=== PATIENT | male | born 1950 | race Caucasian/White ===

== ENCOUNTER 2018-07-18 10:53 | Emergency (ER) | payer OTHER ==
[2018-07-18] MEDS ORDERED: NA CHLORIDE 0.9% 500 ML ONE (12:43)
[2018-07-18] MEDS ORDERED: LIDOCAINE 1% MPF 5 ML VIAL ONE (12:43)
[2018-07-18] MEDS ORDERED: BUPIVACAINE 0.5% PF 10 ML VIAL ONE (12:43)
[2018-07-18] MEDS ORDERED: CEFAZOLIN/SWI 1gm 1 GM/10 ML SYR ONE (12:44)
[2018-07-18] MEDS ORDERED: TETANUS & DIPHTHERIA TOX,ADULT 0.5 ML VIAL ONE (12:44)
--- NOTE | 2018-07-18 14:00 | RAD REPORT ---
EXAM DESCRIPTION: RAD -Hand Left 3 View - 07/18/2018 1:22 pm CLINICAL HISTORY: Left hand pain status post injury FINDINGS: No fracture or dislocation is seen.
--- NOTE | 2018-07-18 14:56 | EDPHYS ---
Physician Documentation [facility] Name: Fareed Kennedy Age: 67 yrs Sex: Male : 1950 Arrival Date: 07/18/2018 Time: 10:59 Bed Treatment Private MD: Jason Mckeon V ED Physician Andrew Paiz HPI: 07/18 12:14 This 67 yrs old Male presents to ER via Ambulatory with complaints of thumb vero laceration. 12:14 The patient or guardian reports decreased range of motion, a laceration, irregular, vero complex, pain. The complaints affect the IP of left thumb. Context: The problem was sustained at home. Onset: The symptoms/episode began/occurred just prior to arrival. Modifying factors: The symptoms are alleviated by. Associated signs and symptoms: The patient has no apparent associated signs or symptoms. Severity of symptoms: At their worst the symptoms were mild, moderate, in the emergency department the symptoms are unchanged. The patient has not experienced similar symptoms in the past. Historical: - Home Meds: 11:14 None [Active]; tw2 - PMHx: 11:14 None; tw2 - PSHx: 11:14 None; tw2 - Immunization history:: Last tetanus immunization: up to date. - Social history:: Smoking status: Patient/guardian denies using tobacco, Patient uses alcohol, occasionally. - Ebola Screening: : Patient denies travel to an Ebola-affected area in the 21 days before illness onset. - Family history:: not pertinent. ROS: 12:14 Constitutional: Negative for fever, chills, and weight loss, Eyes: Negative for injury, vero pain, redness, and discharge, ENT: Negative for injury, pain, and discharge, Neck: Negative for injury, pain, and swelling, Cardiovascular: Negative for chest pain, palpitations, and edema, Respiratory: Negative for shortness of breath, cough, wheezing, and pleuritic chest pain, Abdomen/GI: Negative for abdominal pain, nausea, vomiting, diarrhea, and constipation, Back: Negative for injury and pain, : Negative for injury, bleeding, discharge, and swelling, Skin: Negative for injury, rash, and discoloration, Neuro: Negative for headache, weakness, numbness, tingling, and seizure, Psych: Negative for depression, anxiety, suicide ideation, homicidal ideation, and hallucinations, Allergy/Immunology: Negative for hives, rash, and allergies, Endocrine: Negative for neck swelling, polydipsia, polyuria, polyphagia, and marked weight changes, Hematologic/Lymphatic: Negative for swollen nodes, abnormal bleeding, and unusual bruising. 12:14 MS/extremity: Positive for laceration, pain, swelling, of the dorsal aspect of distal phalanx of left thumb and palmar aspect of distal phalanx of left thumb. Exam: 12:14 Constitutional: This is a well developed, well nourished patient who is awake, alert, vero and in no acute distress. Head/Face: Normocephalic, atraumatic. Eyes: Pupils equal round and reactive to light, extra-ocular motions intact. Lids and lashes normal. Conjunctiva and sclera are non-icteric and not injected. Cornea within normal limits. Periorbital areas with no swelling, redness, or edema. ENT: Nares patent. No nasal discharge, no septal abnormalities noted. Tympanic membranes are normal and external auditory canals are clear. Oropharynx with no redness, swelling, or masses, exudates, or evidence of obstruction, uvula midline. Mucous membranes moist. Neck: Trachea midline, no thyromegaly or masses palpated, and no cervical lymphadenopathy. Supple, full range of motion without nuchal rigidity, or vertebral point tenderness. No Meningismus. Chest/axilla: Normal chest wall appearance and motion. Nontender with no deformity. No lesions are appreciated. Cardiovascular: Regular rate and rhythm with a normal S1 and S2. No gallops, murmurs, or rubs. Normal PMI, no JVD. No pulse deficits. Respiratory: Lungs have equal breath sounds bilaterally, clear to auscultation and percussion. No rales, rhonchi or wheezes noted. No increased work of breathing, no retractions or nasal flaring. Abdomen/GI: Soft, non-tender, with normal bowel sounds. No distension or tympany. No guarding or rebound. No evidence of tenderness throughout. Back: No spinal tenderness. No costovertebral tenderness. Full range of motion. Male : Normal genitalia with no discharge or lesions. Skin: Warm, dry with normal turgor. Normal color with no rashes, no lesions, and no evidence of cellulitis. Neuro: Awake and alert, GCS 15, oriented to person, place, time, and situation. Cranial nerves II-XII grossly intact. Motor strength 5/5 in all extremities. Sensory grossly intact. Cerebellar exam normal. Normal gait. Psych: Awake, alert, with orientation to person, place and time. Behavior, mood, and affect are within normal limits. 12:14 Musculoskeletal/extremity: Extremities: laceration, ROM: no acute changes, Circulation is intact in all extremities. Compartment Syndrome exam of affected extremity: is normal. DVT Exam: negative Homans' sign noted on exam, no appreciated bluish discoloration, no erythema, no increased warmth, pain, swelling, tenderness. Vital Signs: 11:13 BP 179 / 98; Pulse 63; Resp 17; Temp 98(TE); Pulse Ox 100% on R/A; Weight 83.91 kg; tw2 Height 5 ft. 10 in. (177.80 cm); Pain 4/10; 11:13 Body Mass Index 26.54 (83.91 kg, 177.80 cm) tw2 Laceration: 12:50 Wound Repair of 2.5cm ( 1.0in ) subcutaneous laceration to dorsal aspect of distal vero phalanx of left thumb. Irregularly shaped.. Skin/tissue flap noted.. Distal neuro/vascular/tendon intact. Anesthesia: Digital block administered with 5 mls of 1% lidocaine, Digital block administered with 5 mls of 0.5% marcaine. Wound prep: Moderate cleansing with betadine by wi, Copious irrigation. Skin closed with 4 4-0 Prolene using interrupted sutures and sterile technique. Dressed with non-adherent dressing. Patient tolerated well. MDM: 11:45 Patient medically screened. [facility] 12:19 Data reviewed: vital signs, nurses notes, lab test result(s), radiologic studies, plain vero films. 07/18 12:13 Order name: Hand Left 3 View XRAY [facility] 07/18 12:13 Order name: Prolene, Sutures; Complete Time: 13:04 [facility] 07/18 12:13 Order name: Dressing - Wound; Complete Time: 15:11 [facility] 07/18 12:13 Order name: Gloves, Sterile; Complete Time: 13:04 [facility] 07/18 12:13 Order name: Setup Suture Tray; Complete Time: 13:04 [facility] Administered Medications: 13:00 Drug: NS 0.9% 500 ml Route: IV; Rate: bolus; Site: right antecubital; iw 13:00 Drug: Ancef 1 grams Route: IVPB; Site: right antecubital; iw 14:30 Drug: Bupivacaine (0.5 %) 5 ml Volume: 10 ml; Route: Infiltration; iw 15:00 Drug: KeFLEX 500 mg Route: PO; iw 15:11 Not Given ([facility] ): Tetanus-Diphtheria Toxoid Adult 0.5 iw ml IM once 15:11 Drug: Lidocaine (1 %) 5 ml Volume: 5 ml; Route: Infiltration; iw Disposition: 07/18/18 14:55 Discharged to Home. Impression: Laceration without foreign body of left hand - thumb. - Condition is Stable. - Discharge Instructions: Laceration Care, Adult, Laceration Care, Adult, [id number]. - Prescriptions for Keflex 500 mg Oral Capsule - take 1 capsule by ORAL route every 6 hours for 10 days; 28 capsule. Tylenol- Codeine #3 300-30 mg Oral Tablet - take 2 tablets by ORAL route every 6 hours As needed; 24 tablet. - Medication Reconciliation Form, Thank You Letter, Antibiotic Education, Prescription Opioid Use, Work release form form. - Follow up: Jason Mckeon; When: 5 - 6 days; Reason: Recheck today's complaints, Continuance of care, Re-evaluation by your physician. Follow up: Alejandro Christopher; When: 2 - 3 days; Reason: Recheck today's complaints, Re-evaluation by your physician. - Problem is new. - Symptoms have improved. Signatures: Dispatcher [employer] EDPR Andrew Paiz MD MD cha Williams, Irene RN RN iw Delfina Grey RN RN tw2 Corrections: (The following items were deleted from the chart) 15:12 14:55 07/18/2018 14:55 Discharged to Home. Impression: Laceration without foreign body iw of left hand - thumb. Condition is Stable. Discharge Instructions: Laceration Care, Adult, Laceration Care, Adult, [id number]. Prescriptions for Keflex 500 mg Oral Capsule - take 1 capsule by ORAL route every 6 hours for 10 days; 28 capsule, Tylenol-Codeine #3 300-30 mg Oral Tablet - take 2 tablets by ORAL route every 6 hours As needed; 24 tablet. and Forms are Work release form, Medication Reconciliation Form, Thank You Letter, Antibiotic Education, Prescription Opioid Use. Follow up: Jason Mckeon; When: 5 - 6 days; Reason: Recheck today's complaints, Continuance of care, Re-evaluation by your physician. Follow up: Alejandro Christopher; When: 2 - 3 days; Reason: Recheck today's complaints, Re-evaluation by your physician. Problem is new. Symptoms have improved. vero
--- NOTE | 2018-07-18 14:56 | ER ---
Nurse's Notes [facility] Name: Fareed Kennedy Age: 67 yrs Sex: Male : 1950 Arrival Date: 07/18/2018 Time: 10:59 Bed Treatment Private MD: Jason Mckeon V Diagnosis: Laceration without foreign body of left hand-thumb Presentation: 07/18 11:11 Presenting complaint: Patient states: i was using a table saw, it happened about 930, [facility] tetantus shot. Transition of care: patient was not received from another setting of care. Onset of symptoms was July 18, 2018. Risk Assessment: Do you want to hurt yourself or someone else? Patient reports no desire to harm self or others. Initial Sepsis Screen: Does the patient meet any 2 criteria? No. Patient's initial sepsis screen is negative. Does the patient have a suspected source of infection? No. Patient's initial sepsis screen is negative. Care prior to arrival: None. 11:11 Method Of Arrival: Ambulatory tw2 11:11 Acuity: BETSEY 4 tw2 Triage Assessment: 11:15 Injury Description: Laceration sustained to dorsal aspect of distal phalanx of left tw2 thumb and palmar aspect of distal phalanx of left thumb is jagged, 0.5 to 2.5 cm long, not bleeding, was sustained 1-2 hours ago. Historical: - Home Meds: 11:14 None [Active]; tw2 - PMHx: 11:14 None; tw2 - PSHx: 11:14 None; tw2 - Immunization history:: Last tetanus immunization: up to date. - Social history:: Smoking status: Patient/guardian denies using tobacco, Patient uses alcohol, occasionally. - Ebola Screening: : Patient denies travel to an Ebola-affected area in the 21 days before illness onset. - Family history:: not pertinent. Screenin:47 Abuse screen: Denies threats or abuse. Nutritional screening: No deficits noted. tw2 Tuberculosis screening: No symptoms or risk factors identified. Fall Risk None identified. Assessment: 11:47 General: Appears in no apparent distress. Behavior is calm, cooperative, appropriate tw2 for age. Pain: Complains of pain in palmar aspect of distal phalanx of left thumb and dorsal aspect of distal phalanx of left thumb. Neuro: Level of Consciousness is awake, alert, obeys commands, Oriented to person, place, time, situation. Cardiovascular: Patient's skin is warm and dry. Respiratory: Airway is patent Respiratory effort is even, unlabored, Respiratory pattern is regular, symmetrical. GI: No signs and/or symptoms were reported involving the gastrointestinal system. : No signs and/or symptoms were reported regarding the genitourinary system. Injury Description: Laceration sustained to dorsal aspect of distal phalanx of left thumb and palmar aspect of distal phalanx of left thumb is jagged, 0.5 to 2.5 cm long, not bleeding, was sustained 1-2 hours ago. Vital Signs: 11:13 BP 179 / 98; Pulse 63; Resp 17; Temp 98(TE); Pulse Ox 100% on R/A; Weight 83.91 kg; tw2 Height 5 ft. 10 in. (177.80 cm); Pain 4/10; 11:13 Body Mass Index 26.54 (83.91 kg, 177.80 cm) tw2 ED Course: 10:59 Patient arrived in ED. mr 10:59 Jason Mckeon MD is Private Physician. mr 11:13 Triage completed. tw2 11:13 Arm band placed on. tw2 11:16 Bed in low position. Call light in reach. tw2 11:39 Hailey Mcnulty, RN is Primary Nurse. iw 11:45 Andrew Paiz MD is Attending Physician. vero 13:00 Inserted saline lock: 22 gauge in right antecubital area, using aseptic technique. iw 13:18 X-ray completed. Portable x-ray completed in exam room. Patient tolerated procedure sw well. 13:21 Hand Left 3 View XRAY In Process Unspecified. EDMS 14:30 Assist provider with laceration repair on palmar aspect of distal phalanx of left thumb iw that was between 2.6 to 7.5 cm using sutures. Set up tray. Performed by Andrew Paiz MD Dressed with 4X4s, Jose Roberto, Neosporin, Patient tolerated well. 14:55 Jason Mckeon MD is Referral Physician. vero 14:55 Alejandro Christopher MD is Referral Physician. vero 15:00 IV discontinued, intact, bleeding controlled, No redness/swelling at site. Pressure iw dressing applied. Administered Medications: 13:00 Drug: NS 0.9% 500 ml Route: IV; Rate: bolus; Site: right antecubital; iw 13:00 Drug: Ancef 1 grams Route: IVPB; Site: right antecubital; iw 14:30 Drug: Bupivacaine (0.5 %) 5 ml Volume: 10 ml; Route: Infiltration; iw 15:00 Drug: KeFLEX 500 mg Route: PO; iw 15:11 Not Given (pt received tetanus shot at [facility] today ): Tetanus-Diphtheria Toxoid Adult 0.5 iw ml IM once 15:11 Drug: Lidocaine (1 %) 5 ml Volume: 5 ml; Route: Infiltration; iw Outcome: 14:55 Discharge ordered by . vero 15:10 Discharged to home ambulatory. iw 15:10 Condition: good 15:10 Discharge instructions given to patient, Instructed on discharge instructions, follow up and referral plans. medication usage, Demonstrated understanding of instructions, follow-up care, medications, Prescriptions given X 2. 15:12 Patient left the ED. iw Signatures: Dispatcher [employer] Andrew Cooley MD MD cha Rivera, Mary mr Williams, Irene, RN RN Lorena Coe Tara RN RN tw2
== END 2018-07-18 15:12 | disposition home or self-care (01) ==
LOC: ER 10:53
PROC: 0JQK0ZZ Repair Left Hand Subcutaneous Tissue and Fascia, Open Approach (ICD-10-PCS; principal; 2018-07-18)
DX: S61.012A Laceration without foreign body of left thumb without damage to nail, initial encounter (principal); W45.8XXA Other foreign body or object entering through skin, initial encounter; Y93.9 Activity, unspecified; Y92.009 Unspecified place in unspecified non-institutional (private) residence as the place of occurrence of the external cause; Z23 Encounter for immunization
CPT/HCPCS: 73130; 90714; 96374; 99284; 12001; J0690

== ENCOUNTER 2021-04-24 07:47 | Day surgery (SDC) | payer OTHER ==
[2021-04-23 09:40] VITALS: BMI 29.4
--- NOTE | 2021-04-23 10:13 | RAD REPORT ---
EXAM DESCRIPTION: RAD - Chest Pa And Lat (2 Views) - 04/23/2021 10:02 am CLINICAL HISTORY: PRE PROCEDURE Chest pain. COMPARISON: CHEST PA AND LAT 2 VIEW dated 03/30/2007 FINDINGS: The lungs are clear. The heart is normal in size. No displaced fractures. IMPRESSION: No acute or concerning finding suspected.
[2021-04-23 10:22] LABS: Absolute Lymphocytes (CBC) 1.3 K/uL (0.7-4.9); Hematocrit 42.1 % (39.6-49.0); Lymphocytes % 14.8 % (15.3-44.8); MPV 8.1 fL (7.6-11.3); RBC Red Blood Cell Count 4.92 M/uL (4.33-5.43)
[2021-04-23 10:29] LABS: Protime INR 0.94
[2021-04-23 10:33] LABS: Potassium 4.4 mmol/L (3.5-5.1)
[2021-04-24] MEDS ORDERED: NA CHLORIDE 0.9% 500 ML ONE (08:12)
[2021-04-24] MEDS ORDERED: HEPA 1000U/500MLS 1,000 UNIT/500 ML BAG IV ONE ×2 (08:31→08:37)
[2021-04-24] MEDS ORDERED: MIDAZOLAM HCL 2 MG/2 ML INJ ONE (08:31)
[2021-04-24] MEDS ORDERED: ATROPINE SULF 1 MG/10 ML SYR IV ONE ×2 (08:31→09:17)
[2021-04-24] MEDS ORDERED: FENTANYL CITR 100 MCG/2 ML ONE (08:31)
[2021-04-24 11:56] VITALS: BP 158/89; O2SAT 99
--- NOTE | 2021-04-24 19:53 | OP ---
Surgeon: Tito Hernandez MD Glass Bulb Machine Adjuster: Ms. Tiffany Chatman. Admitted on 04/24/2021 to the [facility] lab[facility] as an outpatient for selective bilateral carotid angiogram. Indication: New onset CVA and abnormal carotid Doppler. Procedure In Detail: The patient was prepped and draped in the routine sterile fashion. Given Verse d and fentanyl for sedation. A 6-Turkish sheath introduced in the right common femoral artery success fully. Angiography there was normal. Angio-Seal was used to close the case. A JR4 catheter was use d to select the right common carotid artery and then the left common carotid artery separately. The left common carotid, left ECA and ICA were normal. On the right side, the common carotid and the ext ernal carotids were normal. He had about 50% to 60% ostial right ICA stenosis. A 6-Turkish sheath an d catheters were used. There were no complications. The patient tolerated the procedure well. Blood Loss: 5 mL. Postoperative Diagnosis: Moderate CVD. Plan: Plan is for medical therapy. I am going to add Plavix to his regimen. I am going to increase his atorvastatin to 80 mg daily and continue aspirin. He can go home after his 2 hours of bedrest, and I will see him in the office in 2 weeks. Total conscious sedation 30 minutes. NB/MODL Voice ID: [id number] Report ID: [id number]
== END 2021-04-24 11:30 | disposition home or self-care (01) ==
LOC: CCL 07:47
DX: I65.21 Occlusion and stenosis of right carotid artery (principal); I63.9 Cerebral infarction, unspecified; Z20.822 Contact with and (suspected) exposure to COVID-19
CPT/HCPCS: 85025; 80048; 36415; 85610; 85730; 71046; 36222; U0003; C1893; C1760; J2250; J3010; J7040; J1644 ×2